=== PATIENT | female | born 1975 | race Caucasian/White ===

== ENCOUNTER 2018-12-10 09:35 | Observation (INO) ==
[2018-12-10] MEDS ORDERED: MORPHINE 4 MG/1 ML VIAL IV PRN ×2 (09:58→13:24)
[2018-12-10 10:34] LABS: Alanine Aminotransferase 14 U/L (13-56); Alkaline Phosphatase 104 U/L (45-117); Aspartate Amino Transferase 10 U/L (0-37); Bilirubin,Total < 0.39 MG/DL (0.2-1.0); Blood Urea Nitrogen 12 MG/DL (7-18); Glucose 72 MG/DL (74-106); Osmolality,Calculated 273.7 MOS/KG (273-304); Potassium 4.3 MMOL/L (3.5-5.1); Sodium 138 MMOL/L (136-145); Total Protein 7.6 G/DL (6.4-8.3)
[2018-12-10 10:57] LABS: Basophils # 0.1 10*3/uL (0.0-0.2); Basophils % 0.8 % (0.0-0.8); Eosinophils # 0.3 10*3/uL (0.0-0.87); Eosinophils % 5.2 % (0.00-10.9); Hematocrit 36.8 VOL% (35.7-47.0); Hemoglobin 11.8 GM/DL (12.0-16.0); Immature Granulocytes % 0.3 %; Immature Granulocytes Absolute 0.02 #; Lymphocytes # 1.6 10*3/uL (1.4-4.0); Lymphocytes % 23.9 % (21.3-54.2); Mean Corpuscular HGB Conc 32.1 GM/DL (32-36); Mean Corpuscular Hemoglobin 27 PG (27-34); Mean Corpuscular Volume 82.9 FL (87-102); Mean Platelet Volume 10.1 FL (9.6-12.0); Monocytes # 0.6 10*3/uL (0.11-0.8); Monocytes % 8.5 % (1.7-12.7); Neutrophils # 4.1 10*3/uL (1.4-7.4); Neutrophils % 61.3 % (38.7-73.9); Platelet Count 234 T/CUMM (130-400); Red Blood Count 4.44 MC/CUMM (3.8-5.5); Red Cell Distribution Width 14.7 % (9.3-17.3); White Blood Count 6.6 T/CUMM (4-12)
[2018-12-10 11:04] LABS: PT Patient Result 10.4 SECS; Partial Thromboplastin Time 22.4 SECS (0-40)
[2018-12-10 12:15] LABS: Apearance,Urine Slightly Hazy (Clear); Bilirubin,Urine Negative (Negative); Blood, Urine Negative (Negative); Glucose,Urine (UA) Negative (Negative); Ketones,Urine Negative (Negative); Mucus,Urine Occasional /LPF (Occasional); Nitrite,Urine Negative (Negative); Protein,Urine Negative; RBC,Urine 1 /HPF (0-4); Squamous Epithelial Cell,Urine Moderate /HPF (0-10); Urine Color Yellow (Yellow); Urine Specific Gravity 1.021 (1.001-1.035); Urine Urobilinogen < 2.0 EU/DL (0.2-1.0); WBC,Urine 1 /HPF (0-6)
[2018-12-10] MEDS: ONDANSETRON 4 MG/2 ML VIAL IV PRN ×3 (13:10→18:36)
[2018-12-10] MEDS ORDERED: ACETAMINOPHEN 325 MG TABLET PO PRN (13:18)
[2018-12-10] MEDS ORDERED: NITROGLYCERIN SL 0.4 MG TABLET SL PRN (13:27)
[2018-12-10] MEDS: NICOTINE 14 MG/24 HR PATCH TRANSDERM SCH (14:35)
[2018-12-10] MEDS: ENOXAPARIN 40 MG/0.4 ML SYRINGE SUBCUT SCH (14:36)
[2018-12-10] MEDS: traMADol 50 MG TABLET PO PRN (16:01)
[2018-12-10] MEDS: CARVEDILOL 25 MG TABLET PO SCH (22:05)
[2018-12-11] MEDS: traMADol 50 MG TABLET PO PRN ×3 (01:24→09:54)
[2018-12-11] MEDS: ONDANSETRON 4 MG/2 ML VIAL IV PRN ×2 (01:29→08:17)
[2018-12-11 04:31] LABS: Basophils # 0.1 10*3/uL (0.0-0.2); Basophils % 1.3 % (0.0-0.8); Eosinophils # 0.5 10*3/uL (0.0-0.87); Eosinophils % 7.4 % (0.00-10.9); Hematocrit 38.7 VOL% (35.7-47.0); Hemoglobin 12.3 GM/DL (12.0-16.0); Immature Granulocytes % 0.3 %; Immature Granulocytes Absolute 0.02 #; Lymphocytes # 2.7 10*3/uL (1.4-4.0); Lymphocytes % 38.8 % (21.3-54.2); Mean Corpuscular HGB Conc 31.8 GM/DL (32-36); Mean Corpuscular Hemoglobin 26 PG (27-34); Mean Platelet Volume 10.6 FL (9.6-12.0); Monocytes # 0.7 10*3/uL (0.11-0.8); Monocytes % 10.7 % (1.7-12.7); Neutrophils # 2.9 10*3/uL (1.4-7.4); Neutrophils % 41.5 % (38.7-73.9); Platelet Count 245 T/CUMM (130-400); Red Blood Count 4.66 MC/CUMM (3.8-5.5); Red Cell Distribution Width 15.1 % (9.3-17.3); White Blood Count 6.9 T/CUMM (4-12)
[2018-12-11 05:06] LABS: Calcium 8.8 MG/DL (8.5-10.1); Osmolality,Calculated 272.7 MOS/KG (273-304); Potassium 3.7 MMOL/L (3.5-5.1); Risk Ratio 3.96; Thyroid Stimulating Hormone 6.46 uIU/ml (0.358-3.74); VLDL CHOLESTEROL 26.4 MG/DL
[2018-12-11] MEDS: CARVEDILOL 25 MG TABLET PO SCH ×2 (08:17→09:54)
[2018-12-11] MEDS: PANTOPRAZOLE 40 MG TABLET PO SCH ×2 (08:18→09:54)
[2018-12-11] MEDS: NICOTINE 14 MG/24 HR PATCH TRANSDERM SCH (08:18)
[2018-12-11 11:05] LABS: Free T4 (Free Thyroxine) 0.79 NG/DL (0.76-1.46)
[2018-12-11] MEDS ORDERED: ALUM/MAG/SIMETH/LIDO VISC 1:1 30 ML BOTTLE PO ONE (11:41)
[2018-12-11 11:53] VITALS: BP 107/69
[2018-12-11] MEDS: ENOXAPARIN 40 MG/0.4 ML SYRINGE SUBCUT SCH (13:55)
== END 2018-12-11 13:55 | disposition home or self-care (01) ==
LOC: EDUNIT# → EDBD → N.EDINP 09:35 → N.ED 09:35 → N.TELEN 13:57
PROVIDERS: ADMIT Emergency Medicine; ATTEND Emergency Medicine